=== PATIENT | male | born 2000 | race Caucasian/White ===

== ENCOUNTER 2021-11-04 08:38 | Emergency (ER) | payer SELFPAY ==
[2021-11-04] MEDS ORDERED: Ketorolac 15 MG/ML SDV IVPUSH ONE (09:01)
[2021-11-04] MEDS ORDERED: Iopamidol 612 MG/ML 100 ML Bottle IVPUSH ONE (09:32)
[2021-11-04] MEDS ORDERED: Sodium Chloride 0.9% 10 ML Syringe FLUSH PRN (09:32)
== END 2021-11-04 11:00 | disposition home or self-care (01) ==
LOC: JD.ED 08:38
DX: R07.89 Other chest pain (principal)
CPT/HCPCS: 36415; 71270; 72125; 80053; 81001; 85025; 96374; 99284; J1885; J3490; Q9967